=== PATIENT | male | born 2000 | race Hispanic/Latino ===

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

== ENCOUNTER 2022-11-30 17:34 | Emergency (ER) | payer MEDICAID, OTHER ==
[~2022-11-30] VITALS: Ht 190.5 cm; Wt 145.1 kg
[2022-11-30 17:36] VITALS: BP 173/87
[2022-11-30] MEDS ORDERED: CEFD300C3 PO (21:10)
[2022-11-30] MEDS ORDERED: CEFTRIAXONE 1G VIAL IM ONE (21:30)
[2022-11-30] MEDS ORDERED: LIDOCAINE HCL 1% 20 ML VIAL IM SCH (22:00)
[2022-11-30] MEDS ORDERED: CEFTRIAXONE 1G VIAL ONE (22:10)
== END 2022-11-30 22:42 | disposition home or self-care (01) ==
LOC: EDH 17:34
DX: L02.31 Cutaneous abscess of buttock (principal)
CPT/HCPCS: 99284; 96372 ×2; J0696

== ENCOUNTER 2024-06-04 17:44 | Emergency (ER) | payer SELFPAY ==
[~2024-06-04] VITALS: Ht 195.6 cm; Wt 145.1 kg
[~2024-06-04 17:44] MED LIST: CEFD300C3 PO
[2024-06-04] MEDS ORDERED: DIPH50 PO (17:57)
[2024-06-04] MEDS ORDERED: FAMO40TA75 PO (17:57)
[2024-06-04] MEDS ORDERED: METH4TAB3 PO (17:57)
[2024-06-04] MEDS: dexaMETHasone SOD PHOSPHATE 4 MG/ML 1ML VIAL IM ONE (18:33)
[2024-06-04 18:41] VITALS: BP 120/78; PULSE 99; RESP 16; TEMP 98; O2SAT 98
== END 2024-06-04 18:40 | disposition home or self-care (01) ==
LOC: EDH 17:44
DX: L50.9 Urticaria, unspecified (principal); Z79.2 Long term (current) use of antibiotics
CPT/HCPCS: 99283; 96372; J1100